=== PATIENT | female | born 1995 | race Caucasian/White ===

== ENCOUNTER 2020-03-28 14:39 | Outpatient (CLI) | payer BC ==
--- NOTE | 2020-03-28 15:22 | ULT ---
Exam: Transabdominal pelvic ultrasound HISTORY: Heavy and frequent periods. Patient has been on oral control x2 months. Situation has not resolved. COMPARISON: none TECHNIQUE: Transabdominal imaging of the pelvis is performed. FINDINGS: Uterus is identified without myometrial masses. Uterus measures 6.9 x 3.2 x 3.8 cm. Endometrium: Suboptimal evaluation Free fluid: None Left adnexa: No free fluid. Ovary is not appreciated Right adnexa: No free fluid. Ovary is not appreciated IMPRESSION: 1. Suboptimal evaluation of the endometrium on the transabdominal images. Given patient's history, so nohysterogram versus pelvic MRI is recommended.
== END 2020-03-28 14:40 | disposition home or self-care (01) ==
LOC: BICULT 14:39
PROVIDERS: ATTEND Nurse Practitioner Family
DX: N92.1 Excessive and frequent menstruation with irregular cycle (principal)
CPT/HCPCS: 76856; 93976